=== PATIENT | female | born 1985 | race Caucasian/White ===

== ENCOUNTER 2018-12-14 19:10 | Emergency (ER) | payer OTHER ==
[~2018-12-14] VITALS: Ht 172.7 cm; Wt 90.7 kg
[~2018-12-14 19:10] MED LIST: ORTHO TRI-CYCL1 EACH PO
[2018-12-14] MEDS ORDERED: AUGMENTIN 875-1 EACH PO (19:59)
== END 2018-12-14 20:16 | disposition home or self-care (01) ==
LOC: ED 19:10
DX: S61.051A Open bite of right thumb without damage to nail, initial encounter (principal); Z87.891 Personal history of nicotine dependence; Z88.8 Allergy status to other drugs, medicaments and biological substances; W54.0XXA Bitten by dog, initial encounter
CPT/HCPCS: 90471; 90715; 99283-25

== ENCOUNTER 2020-09-20 09:00 | Day surgery (SDC) | payer OTHER ==
[~2020-09-20] VITALS: Ht 175.3 cm; Wt 90.0 kg
[~2020-09-20 09:00] MED LIST changes: +ADVIL100 M1; +AUGMENTIN 875-1 EACH PO; +IMITREX50 MG PO; +METFORMIN HCL500 M2 PO; +TYLENOL325 M1
--- NOTE | 2020-09-20 10:09 | NUR ---
1000: PT TO IMAGING VIA W/C
--- NOTE | 2020-09-20 11:30 | NUR ---
returned from x ray saline lock flushed and iv connected. warm blanket on. or charge informed.
--- NOTE | 2020-09-20 12:45 | NUR ---
09/20/20 Estela5 Jennifer Foster 1239-PATIENT ARRIVED TO PACU ON 6L MASK RR EVEN ORAL AIRWAY IN PLACE. NONAROUSABLE. LEFT BREAST DRESSING CDI, IVF INFUSING. SR.
[2020-09-20] MEDS ORDERED: IBUPROFEN600 MG PO (12:56)
[2020-09-20] MEDS ORDERED: ACETAMINOPHEN500 MG PO (12:57)
[2020-09-20] MEDS ORDERED: OXYCODON-ACETA1 EAC2 PO (12:57)
--- NOTE | 2020-09-20 13:42 | NUR ---
1315: PT RETURNS TO UNIT FROM PACU VIA STRETCHER. AWAKE AND ALERT. VSS, RESP EVEN AND UNLABORED. PENCIL ERASER SIZED AMOUNTT OF RED DRESSING NOTED ON DRESSING. SCDS IN PLACE. PT REPORTING 5/10 PAIN. ENCD TO EAT CRACKER PRIOR TO PO RX ADMIN. PT VOICES UNDERSTANDING. DENIES NAUSEA 1333: MAURA PO INTAKE WELL, PAIN RX ADMINISTERED ORDERED. SEE PT EMAR. APPLE JUICE PROVIDED REQUESTED. NO FURTHER NEEDS VOICED
--- NOTE | 2020-09-20 14:54 | NUR ---
1415: PT WAKES WHEN THIS RN ENTERS THE ROOM. DENIES NAUSEA. VSS, RESP EVEN AND UNLABORED. DANGLES AT THE BEDSIDE, MAURA WELL. AMBULATES TO BR WITH STANDBY ASSIST FROM THIS RN FOR FIRST SUCCESSFUL POSTOP VOID. BACK TO ROOM 2. PREPARES FOR D/C 1430: SL D/C'D WITH CATH TIP INTACT AND PRESSURE APPLIED TO SITE. WNL. D/C INSTRUCTIONS PROVIDED AND DISCUSSED ORDERED. PT VOICES UNDERSTANDING AND DENIES QUESTIONS AND CONCERNS AT THIS TIME. 1445: PT WHEELED OFF OF UNIT IN W/C BY THIS RN. TRANSFERS INTO VEHICLE INDEPENDENTLY. RESP EVEN AND UNLABORED. NO PHYSICAL S/S OF DISTRESS AT THIS TIME
--- NOTE | 2020-09-21 12:44 | OR ---
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 PROCEDURE: Left segmental breast excision with preop ultrasound localization. ANESTHESIA: General LMA, Kamran Esdras, JEWEL BEARING BROACHER and local 10 mL of 0.25% Marcaine with epinephrine. INDICATION: This 35-year-old white woman is a patient of YANY Badillo. She is found to have bloody nipple discharge on the left side at about the 1 o'clock position. Imaging studies include mammogram and ultrasound. The ultrasound identifying an intraductal neoplasm, which was highly vascular. Excision has been recommended. Initially, the radiologist felt a needle localized approach would be possible. However, upon further inspection, identification of the area with ultrasound with marking of the skin alone was deemed most advisable. She is admitted at this time to undergo excision of the lesion likely by segmental technique understanding the risks of bleeding, infection, cosmetic deformity, and need for other indicated procedures. FINDINGS: Brownish bloody nipple discharge was still able to be produced. It emanated from the 1 o'clock position of the left nipple. Circumareolar incision allowed for segmental resection of the offending area with lacrimal duct probe used as a guide initially. Excision extended beyond the areolar margin and up to the nipple itself sparing most of the other remaining breast areas. There were fibrous cystic changes within the ductal system during the course of the resection noted as well. DESCRIPTION OF PROCEDURE: The patient was brought to the operating room having been received from the radiologist. Ultrasonographic evaluation allowed for marking of the offending intraductal neoplasm at the 1 o'clock position of the left areola. After satisfactory anesthesia and Electronically Signed By: PAUL GONZALEZ MD 09/21/20 1244 PATIENT NAME: KVNG COLMENARES OPERATIVE REPORT DATE OF : 85 REPORT #: [id number] PHYSICIAN: PAUL GONZALEZ MD PCP: DENA SINGH PA-C REPORT IS CONFIDENTIAL AND NOT TO BE RELEASED WITHOUT AUTHORIZATION [facility] [address] [place], [place] [address] Signed preoperative antibiotic Ancef administration and sequential compression device stocking application, the left breast was prepared with a chlorhexidine solution and draped sterilely. A lacrimal duct probe was used to insinuate the area where a nipple discharge was emanating at about the 1 o'clock position. It did not pass as far as usual possibly related to the lesion itself. The areolar margin was marked and a curvilinear incision made along the marked dissection carried through the dermis with electrocautery. A Rashmi retractor was used to elevate the areolar flap for dissection back to the probe and an area was identified with dark fluid consistent with the offending ductal system. This was transected, flushed with the nipple and traced superiorly and laterally taking a wide excision to include a segmental resection fully. Upon dissection throughout the breast, there were areas of cystic fluid that were drained. Once excision was complete, the specimen was transected longitudinally hoping to see the papilloma itself. It was not forthcoming though I am certain that the area in question has been fully excised. Irrigation was undertaken of the wound with sterile water. Parenchymal closure was undertaken with interrupted 2-0 Vicryl and then running subcuticular 3-0 Vicryl for the skin. The application of a local anesthetic was undertaken. Steri-Strips were applied as was a silver sponge dressing (Acticoat type). Blood loss was less than 10 mL. Sponge, needle, and counts reported as correct x3. Paul Gonzalez MD /SHAYLEEL /[id number] cc: MD Dena Betancur PA-C Copies: SILVERIO RICHMOND MD, CHLOE K PA-C ~ Electronically Signed By: PAUL GONZALEZ MD 09/21/20 1244 PATIENT NAME: KVNG COLMENARES OPERATIVE REPORT DATE OF : 85 REPORT #: [id number] PHYSICIAN: PAUL GONZALEZ MD PCP: DENA SINGH PA-C REPORT IS CONFIDENTIAL AND NOT TO BE RELEASED WITHOUT AUTHORIZATION
--- NOTE | 2020-09-23 13:23 | PATH ---
[facility] [address], [place] [address] Signed SPECIMEN(S): A LEFT BREAST 1 O'CLOCK SPECIMEN SOURCE: A. LEFT BREAST 1 O'CLOCK CLINICAL HISTORY: Left breast intraductal lesion FINAL PATHOLOGIC DIAGNOSIS: Breast, left, 1 o'clock, segmental resection: - Benign breast tissue with ductal ectasia and fibrocystic changes. - Intraductal papilloma (2 mm). - Microcalcifications, associated with benign breast tissue. - No evidence of malignancy. NAL:cml:C2NR MICROSCOPIC EXAMINATION: Histologic sections of all submitted blocks are examined by light microscopy. These findings, together with the gross examination, support the pathologic diagnosis. Sections demonstrate benign breast tissue with duct ectasia and striking fibrocystic changes, including cyst formation, apocrine metaplasia, adenosis, usual ductal hypoplasia and stromal fibrosis. Hemosiderin deposition is present in the periductal and perilobular stroma. Focal ducts with hyperplastic epithelium with slightly enlarged, oval nuclei containing macrophages and cellular debris are identified. CK5/6 and ER immunohistochemical stains (with appropriately staining controls) were performed to further evaluate those areas and demonstrate CK5/6 mosaic staining and no ER overexpression. These foci are interpreted as usual ductal hyperplasia. GROSS DESCRIPTION: The specimen, labeled "Atilio Colmenares," and designated on the requisition "left breast segmental resection 1 o'clock," is received in formalin and consists of 5 g of unoriented portion of fibroadipose tissue that is received in two pieces measuring 0.9 x 0.7 x 0.7 cm and 5.2 x 2.6 x 1.7 cm. The largest tissue fragment displays a partially opened cystic structure that is 3.2 x 1.4 x 0.6 cm. Tissue fragments are arbitrarily inked and sectioned revealing approximately 95% of the specimen is a white rubbery cystic fibrous tissue. No discrete mass lesions are grossly identified. The PATIENT NAME: ATILIO COLMENARES PATHOLOGY DATE OF : 85 REPORT #: [id number] PHYSICIAN: MARY PATHOLOGY PCP: JUSTEN SINGH PA-C REPORT IS CONFIDENTIAL AND NOT TO BE RELEASED WITHOUT AUTHORIZATION [facility] [address], [place] [address] Signed specimen is entirely submitted consecutively in cassettes A1-A7. Cold ischemia time: Three minutes Approximate Formalin time: 21 hours. FB (under the direct supervision of a pathologist) The Gross Description was prepared using a voice recognition system. The report was reviewed for accuracy; however, sound-alike word errors, addition and/or deletions may occur. If there is any question about this report, please contact Client Services. ADDITIONAL NOTES: Immunohistochemical and/or in situ hybridization studies were performed on this case with the appropriate positive controls that react as expected. This test was developed and its performance characteristics determined by [facility]. It has not been cleared or approved by the U.S. Food and Drug Administration. The FDA has determined that such clearance or approval is not necessary. This test is used for clinical purposes. It should not be regarded as investigational or for research. [facility] is certified under the Clinical Laboratory Improvement Amendments of 1988 (CLIA) as qualified to perform high complexity clinical laboratory testing. This assay has not been validated for specimens that have been decalcified. PERFORMING LABORATORY: The technical component was performed by [facility], [address] [place] [id number] (Rug Washer: Aspen Webb MD; CLIA# [id number]). Professional interpretation was performed by [facility], [facility], [address] [address] (CLIA# [id number]). Diagnostician: Isabella Parker MD Pathologist Electronically Signed 09/23/2020 Copies: ~ PATIENT NAME: ATILIO COLMENARES PATHOLOGY DATE OF : 85 REPORT #: [id number] PHYSICIAN: MARY PATHOLOGY PCP: JUSTEN SINGH PA-C REPORT IS CONFIDENTIAL AND NOT TO BE RELEASED WITHOUT AUTHORIZATION
== END 2020-09-20 14:45 | disposition home or self-care (01) ==
LOC: OPS 09:00 → DS 09:00 → OPS 11:00 → DS 13:00 → OPS 14:45
PROVIDERS: ATTEND Surgery
PROC: 0HBU0ZZ Excision of Left Breast, Open Approach (ICD-10-PCS; principal; 2020-09-20 11:00)
DX: D24.2 Benign neoplasm of left breast (principal); N60.42 Mammary duct ectasia of left breast; N60.12 Diffuse cystic mastopathy of left breast; N64.52 Nipple discharge; E11.9 Type 2 diabetes mellitus without complications; G43.909 Migraine, unspecified, not intractable, without status migrainosus; Z79.84 Long term (current) use of oral hypoglycemic drugs; Z91.030 Bee allergy status; Z91.018 Allergy to other foods; Z91.048 Other nonmedicinal substance allergy status; Z87.891 Personal history of nicotine dependence; Z88.8 Allergy status to other drugs, medicaments and biological substances
CPT/HCPCS: 00404; 76604; 84703; J0690; J1100; J1644; J1885; J2001; J2405; J2704; J3010; J7121

== ENCOUNTER 2025-01-13 09:31 | Emergency (ER) | payer OTHER ==
[~2025-01-13] VITALS: Ht 175.3 cm; Wt 81.8 kg
[~2025-01-13 09:31] MED LIST changes: +ACETAMINOPHEN500 MG PO; +IBUPROFEN600 MG PO; +OXYCODON-ACETA1 EAC2 PO
[2025-01-13] MEDS ORDERED: JARDIANCE25 MG PO (09:46)
[2025-01-13] MEDS ORDERED: FLUOXETINE HCL10 MG PO (09:47)
[2025-01-13] MEDS ORDERED: IBLOOD GLUCOSE TEST STRIP 1 EA TEST XX ONE (10:00)
[2025-01-13 10:15] LABS: BASOPHILS 0.7 % (0.1-1.2); EOSINOPHILS 3.3 % (0.7-5.8); LYMPHOCYTES 40.2 % (19.3-51.7); MCH 28.7 PG (25.6-32.2); MCHC 33.2 g/dL (32.2-35.5); MCV 86.7 fL (79.4-94.8); MONOCYTES 6.0 % (4.7-12.5); NEUTROPHILS 49.3 % (34.0-71.1); RBC 4.87 M/uL (3.93-5.22)
[2025-01-13 10:28] LABS: INR 1.03 (0.80-1.30); PROTIME 12.8 Sec (11.2-14.2)
[2025-01-13 10:34] LABS: ALT (SGPT) 38 U/L (14-59); AST (SGOT) 19 U/L (15-37); GLOMERULAR FILTRATION RATE,EST 120 mL/min (>60); PROTEIN, TOTAL 7.4 g/dL (6.4-8.2); UREA NITROGEN 11 mg/dL (7-18)
[2025-01-13 12:20] LABS: PREGNANCY TEST, URINE NEGATIVE (NEG)
[2025-01-13 12:36] LABS: AMPHETAMINES, URINE NEGATIVE (NEGATIVE); BARBITURATES, URINE NEGATIVE (NEGATIVE); BENZODIAZEPINE, URINE NEGATIVE (NEGATIVE); CANNABINOID, URINE NEGATIVE (NEGATIVE); COCAINE, URINE NEGATIVE (NEGATIVE); ECSTASY, URINE NEGATIVE (NEGATIVE); FENTANYL, URINE NEGATIVE (NEGATIVE); METHADONE, URINE NEGATIVE (NEGATIVE); OPIATES, URINE NEGATIVE (NEGATIVE); OXYCODONE, URINE NEGATIVE (NEGATIVE); PHENCYCLIDINE, URINE NEGATIVE (NEGATIVE)
[2025-01-13] MEDS ORDERED: ACETAMINOPHEN 500 MG TAB PO ONE (13:30)
[2025-01-13] MEDS ORDERED: SODIUM CHLORIDE 0.9% 1,000 ML IV PRN (13:30)
[2025-01-13] MEDS ORDERED: ASPIRIN 81 MG CHEW PO ONE (13:30)
[2025-01-13 14:48] VITALS: BP 111/68
--- NOTE | 2025-01-13 21:51 | EKG ---
[facility] [address] [facility] [place] [address] Signed Normal sinus rhythm with sinus arrhythmia Normal ECG No previous ECGs available Confirmed by Emigdio Lucero MD () on 01/13/2025 9:50:59 PM Electronically Signed By: EMIGDIO LUCERO MD 01/13/252150 PATIENT NAME: KVNG CLARK Electrocardiogram DATE OF : 85 PHYSICIAN: EMIGDIO LUCERO MD REPORT #: [id number] REPORT IS CONFIDENTIAL AND NOT TO BE RELEASED WITHOUT AUTHORIZATION
== END 2025-01-13 15:10 | disposition home or self-care (01) ==
LOC: ED 09:31
PROVIDERS: Emergency Medicine
DX: G43.909 Migraine, unspecified, not intractable, without status migrainosus (principal); Z88.1 Allergy status to other antibiotic agents; Z88.8 Allergy status to other drugs, medicaments and biological substances
CPT/HCPCS: 36415; 70450; 70496; 70498; 70549; 70551; 71045; 80053; 80307; 84484; 84703; 85025; 85610; 85651; 85730; 86140; 93005; 93010; 96374; 99284-25; A9270; A9573; J2405; J7030; Q9967